=== PATIENT | female | born 1955 | race Two or more races ===

== ENCOUNTER → 2016-07-23 | Day surgery (SDC) | payer BC ==
--- NOTE | 2016-07-24 11:56 | PATH ---
Surgical Pathology Report Patient Name: KATH TEJEDA [facility]. Rec. #: [id number] /Age/Gender: 1955 (Age: 61) / F Account: [id number] Location: [facility] Taken: 07/23/2016 Received: 07/24/2016 Reported: 07/24/2016 Physicians: Adrienne Vides M.D. Specimen(s) Received LEFT BREAST SPECIMEN - WITH MASS Clinical History Nonpalpable lesion, suspicious Final Diagnosis LEFT BREAST, STEREOTACTIC NEEDLE CORE BIOPSY: BENIGN BREAST TISSUE WITH FIBROCYSTIC CHANGES INCLUDING STROMAL FIBROSIS, DUCTAL DILATATION, AND CYSTIC APOCRINE METAPLASIA WITH PROMINENT CYST FORMATION. Comment: Recommend correlation with clinical and radiologic findings and follow up as clinically indicated. Electronically Signed Han Ashby M.D. Gross Description Received in formalin labeled "left breast with mass," is a 3.5 x 2.0 x 0.3 cm aggregate of multiple shaw-yellow, irregular to cylindrical portions of fibroadipose tissue. The formalin is filtered and the specimen is entirely submitted in one cassette. Time to formalin fixation: 5 minutes Total formalin fixation time: Approximately 7 hours. /07/23/2016 saudi07/23/2016
== END | disposition home or self-care (01) ==
LOC: FMAMMOTONE 09:06
PROVIDERS: ATTEND Surgery
PROC: 0HBU3ZX Excision of Left Breast, Percutaneous Approach, Diagnostic (ICD-10-PCS; principal; 2016-07-23)
DX: N63 Unspecified lump in breast (principal); N60.32 Fibrosclerosis of left breast; N60.12 Diffuse cystic mastopathy of left breast; N64.89 Other specified disorders of breast
CPT/HCPCS: 19081; 88305-TC; A4648